=== PATIENT | female | born 2000 | race Caucasian/White ===

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

== ENCOUNTER 2021-04-13 11:19 | Emergency (ER) | payer OTHER, MEDICAID ==
[2021-04-13 11:31] VITALS: BP 129/74
--- NOTE | 2021-04-13 12:23 | ED Physician Documentation ---
History of Present Illness - Stated complaint Stated Complaint: COUGH/PEDROZA - Chief complaint Chief Complaint: Heent - Additonal information Additional information: 20-year-old female presents emergency department for evaluation of a cough that has been ongoing for about 1 month. She reports that often she wakes up in the middle of the night with coughing spells. The worst one was last night which prevented her from getting much sleep. Her has also started coughing. She states that her mom and aunt have had a similar cough for about 2 and 3 months duration respectively. Patient denies any travel. She has tested negative for COVID-19 multiple times in the last month. She has had no fevers, loss of taste or smell. The cough is typically dry. She reports her Tdap is up-to-date. Patient is a non-smoker. no hx of allergies or asthma She thought that perhaps she could be having acid reflux at night but is concerned as her mom and aunt as well as her have been sick with similar. Review of Systems Constitutional: denies: Fever Eyes: reports: Reviewed and negative Ears: reports: Reviewed and negative Nose: reports: Reviewed and negative Throat: reports: Reviewed and negative Cardiac: reports: Reviewed and negative Respiratory: reports: Cough. 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 : None HEENT: None Psych: None Musculoskeletal: None Derm: None - Past Surgical History Past Surgical History: Yes General: Appendectomy - Present Medications Home Medications: Ambulatory Orders Medication Instructions Recorded Confirmed Butalb/Acetaminophen/Caffeine 1 cap PO Q6H PRN #20 capsule 11/30/18 [Fioricet 50-300-40 mg Capsule] - Allergies Allergies/Adverse Reactions: Allergies Allergy/AdvReac Type Severity Reaction Status Date / Time No Known Drug Allergies Allergy Verified 04/13/21 11:31 - Social History Does the pt smoke?: No Smoking Status: Never smoker Does the pt drink ETOH?: No Does the pt have substance abuse?: No - Immunizations Immunizations are current?: Yes PD ED PE EXPANDED - General General: Alert, No acute distress - HEENT HEENT: Atraumatic, Moist mucous membranes, Pharynx normal, Dentition normal. No: Pharyngeal erythema, Tonsillar exudate - Neck Neck: Supple w/out meningeal sx. No: Adenopathy - Cardiac Cardiac: Regular Rate, Radial strong equal, Pedal strong equal, Cap refill < 2 sec - Respiratory Respiratory: Clear to ausultation rosario. No: Distress, Labored - Abdomen Abdomen: Normal Bowel sounds, Tender to palpation - Derm Derm: Normal color, Warm and dry. No: Pale - Extremities Extremities: Normal. No: Deformity, Tenderness - Neuro Neuro: Alert and Oriented X 3, CNII-XII intact - GCS Eye Opening: Spontaneous Motor: Obeys Commands Verbal: Oriented Total: 15 Results - Vitals Vitals: Vital Signs - 24 hr 04/13/21 11:26 Temperature 36.3 C L Heart Rate 78 Respiratory 15 Rate Blood Pressure 129/74 O2 Saturation 100 Oxygen O2 Source Room air - Labs Labs: Laboratory Tests 04/13/21 12:35 Urine HCG, Qual NEGATIVE - Rads (name of study) CXR Radiology: Final report received (no acute cardiopulmonary process) PD MEDICAL DECISION MAKING - ED course Complexity details: reviewed results, considered differential, d/w patient ED course: This is a well-appearing 20-year-old female the presents the emergency department for evaluation of a cough of 1 month duration. Most dominant at night. Cardiopulmonary auscultation is entirely unremarkable. Unremarkable vitals without hypoxia. Screening x-ray also shows no findings consistent with a pneumonia. Given the predominance of this cough for 1 month and findings it is worse at night I suspect that she is likely having a silent acid reflux. I will defer antibiotics at this time. A COVID-19 test is pending. I have advised PPI at night. Avoidance of food or drink 3 hours before bedtime and to attempt sleeping upright. Recommend flonase after shower as this may help with post nasal drip contributing to the symptoms. discussed that if symptoms are not improved, then follow-up with PCP may be warranted to evaluate for acid reflux or referral to GI. Departure - Departure Disposition: 01 Home, Self Care Clinical Impression: Cough Condition: Stable Record reviewed to determine appropriate education?: Yes Comments: You are seen in the emergency department today for a cough that has been ongoing for about 1 month. The cough does seem worse at night and as we discussed I suspect that this may be related to postnasal drip or even silent acid reflux at night. Your chest x-ray today is unremarkable and does not show signs of pneumonia. I would like you to avoid eating or drinking about 2 hours before bedtime and try and sleep upright on 2-3 pillows. I think that you would benefit from doing a saline nasal rinse every day followed by Flonase after your shower. This should help reduce postnasal drip which is likely contributing to your cough at night. If at any point you find that this does not improve your symptoms I would recommend close follow-up with your primary care provider. You may benefit from referral to a contractor general building for evaluation of acid reflux or an EGD.
[2021-04-13 12:45] LABS: HCG UR QUAL NEGATIVE
--- NOTE | 2021-04-13 13:34 | XRAY Report ---
PROCEDURE: Chest 1 View X-Ray INDICATIONS: Cough X 1 month TECHNIQUE: One view of the chest was acquired. COMPARISON: 06/21/2016 FINDINGS: Surgical changes and devices: None. Lungs and pleura: No pleural effusions or pneumothorax. Lungs are clear. Mediastinum: Mediastinal contours appear normal. Heart size is normal. Bones and chest wall: No suspicious bony lesions. Overlying soft tissues appear unremarkable. IMPRESSION: No acute cardiopulmonary process demonstrated radiographically. Reviewed by: Riki Posada MD on 04/13/2021 1:32 PM PDT Approved by: Riki Posada MD on 04/13/2021 1:32 PM PDT Station ID: [id number]
== END 2021-04-13 13:34 | disposition home or self-care (01) ==
LOC: ED 11:19
DX: R05 Cough (principal); Z20.822 Contact with and (suspected) exposure to COVID-19
CPT/HCPCS: 81025; 99282; 99284

== ENCOUNTER 2022-06-11 17:15 | Emergency (ER) | payer MEDICAID, OTHER ==
[2022-06-11 17:43] VITALS: BP 128/59
[2022-06-11 17:59] LABS: RAPID STREP SCREEN Negative (Negative)
--- NOTE | 2022-06-11 18:25 | ED Physician Documentation ---
History of Present Illness - Stated complaint Stated Complaint: FEVER,THROAT/EAR PX - Chief complaint Chief Complaint: Heent - History obtained from History obtained from: Patient - Additonal information Additional information: This is a very nice 21-year-old female, generally healthy, who presents with 3 days ofFever, sore throat and mild ear pain. She has also had some nasal congestion. She has not had a cough or shortness of breath, no chest pain, no abdominal pain, no nausea vomiting or diarrhea, no urinary symptoms. She has been using ahdv-cgz-qpqeask decongestant with improvement in her symptoms but she wanted to make sure that she did not have an ear infection or strep throat. 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 : None HEENT: None Psych: None Musculoskeletal: None Derm: None - Past Surgical History Past Surgical History: Yes General: Appendectomy - Present Medications Home Medications: Ambulatory Orders Medication Instructions Recorded Confirmed No Known Home Medications 06/11/22 06/11/22 - Allergies Allergies/Adverse Reactions: Allergies Allergy/AdvReac Type Severity Reaction Status Date / Time No Known Drug Allergies Allergy Verified 06/11/22 17:43 - Social History Does the pt smoke?: No Smoking Status: Never smoker Does the pt drink ETOH?: No Does the pt have substance abuse?: No - Immunizations Immunizations are current?: Yes PD ED PE NORMAL - Vitals Vital signs reviewed: Yes - General General: Alert and oriented X 3, No acute distress, Well developed/nourished - HEENT HEENT: Atraumatic, Ears normal, Moist mucous membranes, Pharynx benign, Other (No tonsillar exudate or swelling) - Neck Neck: Supple, no meningeal sign, No adenopathy - Cardiac Cardiac: No murmur - Respiratory Respiratory: No respiratory distress, Clear bilaterally - Abdomen Abdomen: Normal bowel sounds, Soft, Non distended - Derm Derm: Normal color, Warm and dry, No rash - Neuro Neuro: Alert and oriented X 3 Eye Opening: Spontaneous Motor: Obeys Commands Verbal: Oriented GCS Score: 15 Results - Vitals Vitals: Vital Signs - 24 hr 06/11/22 17:40 Temperature 36.9 C Heart Rate 95 Respiratory 16 Rate Blood Pressure 128/59 L O2 Saturation 100 Oxygen O2 Source Room air - Labs Labs: Laboratory Tests 06/11/22 17:48 Group A Strep Rapid Negative PD MEDICAL DECISION MAKING - ED course Complexity details: considered differential, d/w patient, d/w family ED course: This is a very nice 21-year-old female who presents with sore throat and ear pain for the last several days as per HPI. Patient is well-appearing, with stable vital signs. Her physical exam is unremarkable without any erythema, her tympanic membranes are normal and I have low suspicion for strep for acute otitis media. A viral panel was obtained and I suspect this is common cold virus or influenza. Recommended supportive measures including rest, oral fluids, Tylenol and ibuprofen and atmo-sfo-hbtnewc cough medication if desired. Patient was advised that the viral panel has not returned from the lab yet and she may check her results at the patient portal or call the hospital later for results but the treatment is largely supportive. Return precautions reviewed with patient and her mother. Departure - Departure Disposition: 01 Home, Self Care Clinical Impression: Viral pharyngitis Condition: Good Instructions: ED Pharyngitis Viral Comments: As we discussed, your strep test is negative and a viral panel is pending. Most viruses are treated the same which is with rest, plenty of oral fluids, Tylenol and ibuprofen for pain. You may take any kilk-iqh-jpgbqqt decongestants or cough medicine as needed or throat lozenges to help with the sore throat. Please either call for results or follow-up on your patient portal to get the results of your viral panel. You can go to work as long as you do not have a fever, if you do develop a fever, please be fever free for 24 hours before returning to work.
[2022-06-11 19:00] LABS: B. PARAPERTUSSIS- RESP PCR PAN NOT DETECTED; B. PERTUSSIS- RESP PCR PANEL NOT DETECTED; C. PNEUMONIAE- RESP PCR PANEL NOT DETECTED; CORONAVIRUS 229E-RESP PCR NOT DETECTED; CORONAVIRUS HKU1-RESP PCR NOT DETECTED; CORONAVIRUS NL63-RESP PCR NOT DETECTED; CORONAVIRUS OC43-RESP PCR NOT DETECTED; HUMAN METAPNEUMOVIRUS NOT DETECTED; INFLUENZA A- RESP PCR PANEL NOT DETECTED; INFLUENZA B - RESP PCR PANEL NOT DETECTED; M. PNEUMONIAE- RESP PCR PANEL NOT DETECTED; PARAINFLUENZA VIRUS 1 NOT DETECTED; PARAINFLUENZA VIRUS 2 NOT DETECTED; PARAINFLUENZA VIRUS 3 NOT DETECTED; PARAINFLUENZA VIRUS 4 NOT DETECTED; RHINOVIRUS/ENTEROVIRUS NOT DETECTED; RSV- RESP PCR PANEL NOT DETECTED; SARS-CoV-2 -RESP PCR PANEL NOT DETECTED
== END 2022-06-11 18:26 | disposition home or self-care (01) ==
LOC: ED 17:15
DX: J02.8 Acute pharyngitis due to other specified organisms (principal); Z20.822 Contact with and (suspected) exposure to COVID-19
CPT/HCPCS: 87070; 87430; 87633; 99282; 99283

== ENCOUNTER 2022-07-30 11:20 | Emergency (ER) | payer OTHER ==
--- OUTSIDE RECORDS SUMMARY | 2022-07-30 11:28 | EXTERNAL MEDICAL SUMMARY RPT | Continuity of Care Document ---
:2000 Author Organization [facility] Address [address] [place] [address] Phone Care Team Providers Name Role Phone Unavailable Unavailable Unavailable Prasanna Moshgiach Enp, Nely Unavailable Unavailable Allergies No information. Encounters No information. Functional Status No information. Immunizations No information. Medications date description facility 2022-06-12 00:00 amoxicillin All 2022-06-12 00:00 amoxicillin All 2022-06-12 00:00 amoxicillin All 2022-06-12 00:00 amoxicillin All Problems date description facility 2022-06-12 00:00 Streptococcal sore throat All 2022-06-12 00:00 Streptococcal pharyngitis All Procedures date description facility 2022-06-12 00:00 Visit Code Hold All Results/Labs No information. Social History date description facility 2022-06-12 00:00 Unknown if ever smoked All 2022-06-13 00:00 Unknown if ever smoked All Vital Signs date measurement value units 2022-06-12 00:00 BMI 24.46 kg/m2 2022-06-12 00:00 BP_diastolic 85 mmHg 2022-06-12 00:00 BP_systolic 135 mmHg 2022-06-12 00:00 heart_rate 93 /min 2022-06-12 00:00 height_metric 162.56 cm 2022-06-12 00:00 height_standard 64 in 2022-06-12 00:00 respiration_rate 16 /min 2022-06-12 00:00 temperature_metric 37 C 2022-06-12 00:00 temperature_standard 98.6 F 2022-06-12 00:00 weight_metric 64.41 kg 2022-06-12 00:00 weight_standard 142 lb
--- NOTE | 2022-07-30 11:36 | ED Physician Documentation ---
PD HPI FEMALE - Stated complaint Stated Complaint: CRAMPING/4 WEEKS - Chief complaint Chief Complaint: Abd Pain - History obtained from History obtained from: Patient - Additional information Additional information: 21-year-old with recent positive test. LMP of June 27 putting her at 4 weeks and 5 days. Cramping and bleeding which is mild x2 days and worry for miscarriage. Pain is minimal. 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 : None HEENT: None Psych: None Musculoskeletal: None Derm: None - Past Surgical History Past Surgical History: Yes General: Appendectomy - Present Medications Home Medications: Ambulatory Orders Medication Instructions Recorded Confirmed No Known Home Medications 06/11/22 06/11/22 - Allergies Allergies/Adverse Reactions: Allergies Allergy/AdvReac Type Severity Reaction Status Date / Time No Known Drug Allergies Allergy Verified 07/30/22 11:35 - Social History Does the pt smoke?: No Smoking Status: Never smoker Does the pt drink ETOH?: No Does the pt have substance abuse?: No - Immunizations Immunizations are current?: Yes PD ED PE NORMAL - Vitals Vital signs reviewed: Yes - General General: Alert and oriented X 3, No acute distress - Abdomen Abdomen: Normal bowel sounds, Soft, Non tender - Female Female : Other (With use of bedside ultrasound I am not able to identify an intrauterine but there is no free fluid either.) - Neuro Neuro: Alert and oriented X 3, Normal speech Results - Vitals Vitals: Vital Signs - 24 hr 07/30/22 07/30/22 11:28 12:30 Temperature 36.6 C Heart Rate 84 80 Respiratory 16 14 Rate Blood Pressure 140/88 H 118/74 O2 Saturation 100 100 Oxygen O2 Source Room air - Labs Labs: Laboratory Tests 07/30/22 07/30/22 07/30/22 11:42 11:42 11:42 WBC 8.0 RBC 4.83 Hgb 14.2 Hct 42.1 MCV 87.2 MCH 29.4 MCHC 33.7 RDW 12.7 Plt Count 165 MPV 10.7 Neut # (Auto) 5.8 Lymph # (Auto) 1.6 [place] # (Auto) 0.5 Eos # (Auto) 0.1 Baso # (Auto) 0.0 Absolute Nucleated RBC 0.00 Nucleated RBC % 0.0 Sodium 135 Potassium 3.7 Chloride 102 Carbon Dioxide 25 Anion Gap 8.0 BUN 10 Creatinine 0.7 Estimated GFR (MDRD) 106 Glucose 107 H Calcium 8.9 HCG, Quant Blood Type O POSITIVE 07/30/22 11:42 WBC RBC Hgb Hct MCV MCH MCHC RDW Plt Count MPV Neut # (Auto) Lymph # (Auto) [place] # (Auto) Eos # (Auto) Baso # (Auto) Absolute Nucleated RBC Nucleated RBC % Sodium Potassium Chloride Carbon Dioxide Anion Gap BUN Creatinine Estimated GFR (MDRD) Glucose Calcium HCG, Quant 20.53 Blood Type - Rads (name of study) Formal ultrasound not demonstrating intrauterine nor findings of ectopic. Radiology: Final report received, EMP read indepedently PD Medical Decision Making - ED course ED course: 21-year-old woman in early with spotting. Beta-hCG 20, quite low. CBC reviewed and normal. BMP reviewed and normal. Ultrasound not demonstrating IUP nor evidence of ectopic. This is most consistent with a miscarriage but repeat ultrasonography and hCG testing were advised. Departure - Departure Disposition: 01 Home, Self Care Clinical Impression: Threatened Condition: Good Record reviewed to determine appropriate education?: Yes Instructions: ED Miscarriage Poss Comments: Your beta-hCG today was low at 20, the remainder of your blood work was normal. The apprentice electrician was not able to identify a on ultrasound. Reasonable to have these rechecked by your OB in a week. Return if worse. Discharge Date/Time: 07/30/22 13:06
[2022-07-30 11:53] LABS: BASOPHILS % (AUTO) 0.3 %; EOSINOPHILS # (AUTO) 0.1 10^3/uL (0.0-0.7); HCT - HEMATOCRIT 42.1 % (37.0-47.0); HGB - HEMOGLOBIN 14.2 g/dL (12.0-16.0); LYMPHOCYTES # (AUTO) 1.6 10^3/uL (1.5-3.5); LYMPHOCYTES % (AUTO) 19.8 %; MEAN CORPUSCULAR HEMOGLOBIN 29.4 pg (27.0-31.0); MEAN CORPUSCULAR HGB CONC 33.7 g/dL (32.0-36.0); MEAN CORPUSCULAR VOLUME 87.2 fL (81.0-99.0); MEAN PLATELET VOLUME 10.7 fL (7.9-10.8); MONOCYTES # (AUTO) 0.5 10^3/uL (0.0-1.0); MONOCYTES % (AUTO) 6.8 %; NEUTROPHILS # (AUTO) 5.8 10^3/uL (1.5-6.6); PLT - PLATELET COUNT 165 10^3/uL (130-450); RED BLOOD COUNT 4.83 10^6/uL (4.20-5.40); RED CELL DISTRIBUTION WIDTH 12.7 % (12.0-15.0)
[2022-07-30 12:07] LABS: CALCIUM 8.9 mg/dL (8.5-10.3); CREATININE 0.7 mg/dL (0.4-1.0); POTASSIUM 3.7 mmol/L (3.5-5.0)
[2022-07-30 12:47] VITALS: BP 118/74
--- NOTE | 2022-07-30 13:23 | Ultrasound Report ---
PROCEDURE: OB First Trimester w/TV INDICATIONS: early preg, VB cramp OUTSIDE/PRIOR DATING DATA: Last menstrual period (LMP): 06/27/2022. LMP-based estimated date of delivery (MONICA): 04/03/2023. First dating scan (date and location): Not applicable. Estimated date of delivery ([place]) from first dating scan: Not applicable. TECHNIQUE: Real-time scanning was performed of the fetus and maternal pelvic organs, with image documentation. Endovaginal scanning was also performed to better visualize the fetus and maternal ovaries. COMPARISON: None FINDINGS: Embryo: No intrauterine can be seen. No gestational sac seen. Maternal organs: Ovaries are within normal limits. There is a trace amount of simple appearing free fluid seen. IMPRESSION: These imaging findings are most compatible with a completed spontaneous miscarriage. Please relate wi th known patient history and beta hCG values. A small amount of free fluid is seen within the right adnexal region, which appears simple in nature. This is felt most likely to be within physiologic limits. Differential diagnosis includes ectopic , yet this is considered to be less likely. Close clinical follow-up with serial beta hCG measurements and serial ultrasound would be recommended , as clinically appropriate. Note: Concordant preliminary findings given by the tax intern upon the completion of the examination to Dr. Prabhakar. Reviewed by: Jim Massey MD on 07/30/2022 12:22 PM [facility] Approved by: Jim Massey MD on 07/30/2022 12:22 PM [facility] Station ID: [id number]
== END 2022-07-30 13:06 | disposition home or self-care (01) ==
LOC: ED 11:20
DX: O20.0 Threatened abortion (principal); Z3A.01 Less than 8 weeks gestation of pregnancy
CPT/HCPCS: 36415; 80048; 84702; 85025; 86900; 86901; 99283; 99284

== ENCOUNTER 2022-09-06 17:15 | Outpatient (CLI) | payer OTHER | END 2022-09-06 17:30 | disposition home or self-care (01) | LOC: LAB.N 17:15 | PROVIDERS: ATTEND Nurse Practitioner | DX: R30.0 Dysuria (principal) | CPT/HCPCS: 87086 ==

== ENCOUNTER 2022-09-06 20:42 | Emergency (ER) | payer OTHER ==
[2022-09-06 20:49] VITALS: BP 140/90
[2022-09-06 20:58] LABS: BILIRUBIN,URINE NEGATIVE (NEGATIVE); GLUCOSE, URINE (UA) NEGATIVE (NEGATIVE); KETONES,URINE (UA) TRACE mg/dL (NEGATIVE); LEUKOCYTE ESTERASE, URINE LARGE (NEGATIVE); NITRITE,URINE NEGATIVE (NEGATIVE); OCCULT BLOOD,URINE LARGE (NEGATIVE); PH,URINE 7.5 PH (5.0-7.5); PROTEIN,URINE 100 mg/dL (NEGATIVE); UROBILINOGEN,URINE 0.2 (NORMAL) E.U./dL (NORMAL)
[2022-09-06] MEDS ORDERED: PHENAZOPYRIDINE 100 MG TABLET PO STA (20:58)
[2022-09-06 21:01] LABS: CLARITY,URINE CLOUDY (CLEAR); HCG UR QUAL NEGATIVE
[2022-09-06 21:06] LABS: BACTERIA,URINE Rare /HPF (None Seen); RBC,URINE TNTC /HPF (0-5); SQUAMOUS EPITHELIAL CELL,UR RARE Squamous (<= Few); WBC,URINE >25 /HPF (0-5)
[2022-09-06] MEDS ORDERED: NITROFURANTOIN MACRO 100 MG CAPSULE PO STA (21:07)
[2022-09-06] MEDS ORDERED: PHENAZOPYRIDINE 100 MG TABLETS (Prepack) PO PRN (21:17)
--- NOTE | 2022-09-06 21:17 | ED Physician Documentation ---
PD HPI FEMALE - Stated complaint Stated Complaint: FEMALE /ABD PX - Chief complaint Chief Complaint: Abd Pain - History obtained from History obtained from: Patient - Additional information Additional information: Patient is a 21-year-old female presenting for evaluation of dysuria for the past 2 days. She has a history of prior urinary tract infections and started having dysuria yesterday. She went to the walk-in clinic today and they said she had some markers of possible early infection. They prescribed Pyridium and sent it to her pharmacy. This prescription was not available for her when she went to pick it up this evening. She then reported having increased discomfort and also noticing blood in her urine. She denies abdominal pain, nausea, vomiting, back pain. She denies concerns for . She denies vaginal bleeding or discharge. Review of Systems Constitutional: denies: Fever Cardiac: denies: Chest pain / pressure Respiratory: denies: Dyspnea GI: denies: Abdominal Pain : reports: Dysuria. 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 : Chronic bladder infection HEENT: None Psych: None Musculoskeletal: Other Derm: None - Past Surgical History Past Surgical History: Yes General: Appendectomy Ortho: Other - Present Medications Home Medications: Ambulatory Orders Medication Instructions Recorded Confirmed Nitrofurantoin [Macrobid] 1 cap PO BID #10 cap 09/06/22 Phenazopyridine HCl [Pyridium] 200 mg PO TID PRN #6 tablet 09/06/22 - Allergies Allergies/Adverse Reactions: Allergies Allergy/AdvReac Type Severity Reaction Status Date / Time No Known Drug Allergies Allergy Verified 09/06/22 20:45 - Social History Does the pt smoke?: No Smoking Status: Never smoker Does the pt drink ETOH?: No Does the pt have substance abuse?: No - Immunizations Immunizations are current?: Yes - POLST Patient has POLST: No PD ED PE NORMAL - General General: Alert and oriented X 3, No acute distress, Well developed/nourished - HEENT HEENT: Atraumatic - Neck Neck: Supple, no meningeal sign - Cardiac Cardiac: RRR - Respiratory Respiratory: No respiratory distress, Clear bilaterally - Abdomen Abdomen: Soft, Non tender, Non distended - Back Back: No CVA TTP - Derm Derm: Warm and dry Results - Vitals Vitals: Vital Signs - 24 hr 09/06/22 09/06/22 20:45 20:58 Temperature 36.8 C Heart Rate 88 Respiratory 16 17 Rate Blood Pressure 140/90 H O2 Saturation 100 Oxygen O2 Source Room air - Labs Labs: Laboratory Tests 09/06/22 20:53 Urine Color RED/BLOODY Urine Clarity CLOUDY Urine pH 7.5 Ur Specific [place] 1.020 Urine Protein 100 H Urine Glucose (UA) NEGATIVE Urine Ketones TRACE Urine Occult Blood LARGE H Urine Nitrite NEGATIVE Urine Bilirubin NEGATIVE Urine Urobilinogen 0.2 (NORMAL) Ur Leukocyte Esterase LARGE H Urine RBC TNTC H Urine WBC >25 H Ur Squamous Epith Cells RARE Squamous Urine Bacteria Rare Ur Microscopic Review INDICATED Urine Culture Comments INDICATED Urine HCG, Qual NEGATIVE PD Medical Decision Making - ED course Complexity details: reviewed results, re-evaluated patient ED course: Patient presenting for evaluation of dysuria x2 days. Her vital signs are stable. Her abdominal exam is benign. She has no suprapubic tenderness or a bdominal tenderness or flank tenderness to suggest stone or intra-abdominal process. Her urine analysis was reviewed.He was noted to have blood in it. Due to her symptoms and UA results I do think she likely has an infection and we will start her on an antibiotic. I will also prescribe Pyridium and patient has received the first dose of both here. Her test is negative. She denies vaginal bleeding or discharge.She understands the treatment plan and She is advised on concerning symptoms to return for. Departure - Departure Disposition: 01 Home, Self Care Clinical Impression: Cystitis Condition: Stable Instructions: ED Hematuria, ED UTI Cystitis Female Prescriptions: Nitrofurantoin [Macrobid] 1 cap PO BID #10 cap Phenazopyridine HCl [Pyridium] 200 mg PO TID PRN #6 tablet PRN Reason: dysuria Comments: You have been Started on an antibiotic for urinary tract infection. Have also written a prescription for Pyridium which will help with the discomfort. With prescriptions were electronically sent to [facility] in [place].The urine will also be sent for culture. If you need a different antibiotic we will notify you. Please make sure to complete your antibiotic. I would expect the blood in your urine to clear up as the infection is treated. If you have any worsening symptoms please consider return to the ER. Discharge Date/Time: 09/06/22 21:23
== END 2022-09-06 21:23 | disposition home or self-care (01) ==
LOC: ED 20:42
DX: N30.90 Cystitis, unspecified without hematuria (principal)
CPT/HCPCS: 81001; 81025; 87086; 99283; A9270; 81003